=== PATIENT | male | born 1930 | race Caucasian/White ===

== ENCOUNTER 2019-02-15 17:01 | Inpatient (IN) | payer MEDICARE, OTHER ==
[~2019-02-15] VITALS: Ht 188 cm; Wt 110.9 kg
[~2019-02-15 17:01] MED LIST: ALBU18HF2 INH; ALOG25TA2 PO; AMOX-580 PO; ASPI-1265 PO; ATOR10TA87 PO; BUDE10.22 INH; CARB15DR95 EACHEYE; CLOP75TA33 PO; DULO60CA65 PO; FLUT16SP2 BOTHNARES; FURO-149 PO; GABA-534 PO; GLIP5TAB13 PO; IPRA4AER IH; LOSA25TA96 PO; METO50TA7 PO; OMEP20CA11 PO; POTA10TA36 PO; SILV50CR31 TP
[2019-02-15 17:42] LABS: BASOPHILS # (AUTO) 0.1 X10'3 (0-0.2); EOSINOPHILS # (AUTO) 0.2 X10'3 (0-0.9); HEMATOCRIT 48.4 % (42.0-52.0); HEMOGLOBIN 15.4 g/dl (14.0-17.9); LYMPHOCYTES # (AUTO) 1.8 X10'3 (1.1-4.8); LYMPHOCYTES % (AUTO) 16.7 % (21-51); MEAN CORPUSCULAR HEMOGLOBIN 19.9 PG (27.0-31.0); MEAN CORPUSCULAR HGB CONC 31.9 g/dL (33.0-36.5); MEAN CORPUSCULAR VOLUME 62.3 FL (78-98); MEAN PLATELET VOLUME 8.4 FL (7.4-10.4); MONOCYTES # (AUTO) 1.2 X10'3 (0-0.9); MONOCYTES % (AUTO) 11.9 % (2-12); NEUTROPHILS # (AUTO) 7.2 X10'3 (1.8-7.7); NEUTROPHILS % (AUTO) 68.4 % (42-75); PLATELET COUNT 273 X10'3 (140-440); RED BLOOD COUNT 7.77 X10'6 (4.70-6.10); RED CELL DISTRIBUTION WIDTH 17.8 % (11.5-14.5); WHITE BLOOD COUNT 10.5 X10'3 (4.5-11.0)
[2019-02-15 17:53] LABS: PARTIAL THROMBOPLASTIN TIME 29 SECONDS (22-32)
[2019-02-15 17:54] LABS: ALANINE AMINOTRANSFERASE 14 U/L (12-78); ALBUMIN 3.4 G/DL (3.4-5.0); ALBUMIN/GLOBULIN RATIO 0.9 (1.1-1.5); ALKALINE PHOSPHATASE 86 IU/L (46-116); ANION GAP 12 (8-16); ASPARTATE AMINO TRANSFERASE 16 U/L (10-37); BILIRUBIN,TOTAL 1.1 MG/DL (0.1-1.0); BLOOD UREA NITROGEN 19 MG/DL (7-18); CALCIUM 9.2 MG/DL (8.5-10.1); CHLORIDE 102 MMOL/L (99-107); CREATININE 1.58 MG/DL (0.60-1.10); GLUCOSE 197 MG/DL (70-104); POTASSIUM 4.1 MMOL/L (3.5-5.1); SODIUM 139 MMOL/L (135-145); TOTAL CARBON DIOXIDE 24.8 MMOL/L (24-32); TOTAL PROTEIN 7.4 G/DL (6.4-8.2); eGFR 42 ML/MIN
[2019-02-15 18:00] LABS: MAGNESIUM 2.1 MG/DL (1.5-2.4)
[2019-02-15 18:09] LABS: ANISOCYTOSIS 1+; HYPOCHROMASIA 1+; MICROCYTOSIS 2+; PLATELET ESTIMATE NORMAL; POIKILOCYTOSIS 1+; POLYCHROMASIA FEW; SPHEROCYTES FEW; TARGET CELLS FEW
[2019-02-15 18:10] LABS: ELLIPTOCYTES 1+; ROULEAUX 1+; SCHISTOCYTES FEW; STOMATOCYTES FEW; TEAR DROP CELLS FEW
[2019-02-15] MEDS ORDERED: methylPREDNISolone sod succ 125mg/2ml vial IV ONE (18:10)
[2019-02-15] MEDS ORDERED: ipratropium/albuterol 3ml nebule NEB ONE (18:10)
[2019-02-15] MEDS ORDERED: furosemide 40mg/4ml inj IV ONE (18:10)
[2019-02-15] MEDS ORDERED: ondansetron/PF 4mg/2ml inj IV PRN (19:35)
[2019-02-15] MEDS ORDERED: acetaminophen 325mg tablet PO PRN ×2 (19:35)
[2019-02-15] MEDS ORDERED: magnesium 4gm in 100ml NS 100 ML IV PRN (19:35)
[2019-02-15] MEDS ORDERED: potassium Cl 20 mEq SR tablet PO PRN (19:35)
[2019-02-15] MEDS ORDERED: morphine 2 MG/ML inj. syringe IV PRN ×2 (19:35)
[2019-02-15] MEDS ORDERED: magnesium Cl slow-release 64mg tablet PO PRN (19:35)
[2019-02-15] MEDS ORDERED: magnesium hydroxide 30ml (MOM) UD suspension PO PRN (19:35)
[2019-02-15] MEDS ORDERED: potassium CL 10mEq/100ml bag 100 ML IV PRN ×2 (19:35)
[2019-02-15] MEDS ORDERED: HYDROcodone/acetaminophen 5mg/325mg tablet PO PRN (19:35)
[2019-02-15] MEDS ORDERED: mag hydrox/Alum hydrox/simeth 30ml oral suspension PO PRN (19:35)
[2019-02-15] MEDS ORDERED: nitroGLYCERIN 0.4mg SUBLingual tab SL PRN (19:35)
[2019-02-15] MEDS ORDERED: magnesium 2GM in 50ml NS 50 ML IV PRN (19:35)
[2019-02-15] MEDS ORDERED: HYDROcodone/acetaminophen 10/325mg tab PO PRN (19:35)
[2019-02-15 19:58] LABS: COLOR,URINE YELLOW (Yellow); GLUCOSE, URINE NEGATIVE (Neg); KETONES,URINE NEGATIVE (Neg); LEUKOCYTE ESTERASE ,URINE TRACE (Neg); NITRITES, URINE NEGATIVE (Neg); OCCULT BLOOD,URINE MODERATE (Neg); PH,URINE 5.5 (4.8-8.0); PROTEIN,URINE TRACE mg/dl (Neg)
[2019-02-15 20:04] LABS: CLARITY,URINE SLIGHTLY CLOUDY (Clear); UA COLLECTION TYPE URINAL
[2019-02-15 20:09] LABS: BACTERIA,URINE 1+ /HPF (Neg)
[2019-02-15 20:10] LABS: MUCUS STRANDS FEW /LPF (Neg); SQUAMOUS EPITHELIAL CELL,UR FEW /LPF (FEW); WBC CLUMPS,URINE MODERATE /HPF (NEGATIVE)
[2019-02-15] MEDS: DOBUTamine-DoBUTrex 500mg/D5W 250 ML IV SCH (20:11)
[2019-02-15] MEDS ORDERED: MESSAGE TO PHARMACY PO ONE (21:45)
[2019-02-15] MEDS ORDERED: dextrose 50%-water 50ml dispensing syringe IV PRN ×2 (21:45)
[2019-02-15] MEDS ORDERED: glucagon, human recombinant 1mg kit SUBCUT PRN (21:45)
[2019-02-15] MEDS ORDERED: dextrose ORAL solution 15 GM/59 ML bottle PO PRN ×2 (21:45)
[2019-02-15] MEDS ORDERED: ipratropium/albuterol 3ml nebule NEB PRN (21:45)
--- NOTE | 2019-02-15 21:55 | NUR ---
Patient arrived to room 3024B from ER with at side. All belongings on person. Patient oriented to room, call light, plan of care and all questions answered. Dobutamine gtt @ 3mcg/kg/hr. Mobile set up and vital signs stable. 2 RN skin check done and pics taken of RLE and put in chart. Will continue to monitor. Addendum: 02/16/19 at 0033 by Anna Loya RN 3mcg/kg/min
[2019-02-15 22:00] VITALS: BP 122/98
[2019-02-15 23:00] VITALS: BP 101/58
--- NOTE | 2019-02-15 23:05 | NUR ---
PAGER ID: [phone] MESSAGE: [id number] Colin Mckinnon results in, WBC 5-10 Anna RN #[id number]
[2019-02-15 23:36] LABS: CLARITY,URINE TURBID (Clear); COLOR,URINE YELLOW (Yellow); GLUCOSE, URINE NEGATIVE (Neg); KETONES,URINE NEGATIVE (Neg); LEUKOCYTE ESTERASE ,URINE NEGATIVE (Neg); NITRITES, URINE NEGATIVE (Neg); OCCULT BLOOD,URINE LARGE (Neg); PROTEIN,URINE 30 mg/dl (Neg)
[2019-02-15 23:40] LABS: UA COLLECTION TYPE FOLEY CATH
[2019-02-15 23:43] LABS: BACTERIA,URINE FEW /HPF (Neg); RBC,URINE TNTC /HPF (0-2); SQUAMOUS EPITHELIAL CELL,UR FEW /LPF (FEW)
[2019-02-16] VITALS (14 sets, daily range): BP systolic 67–135; BP diastolic 33–100
[2019-02-16] MEDS: furosemide 10 MG/1 ML 10ml inj IV SCH ×4 (00:09→17:52)
--- NOTE | 2019-02-16 06:05 | NUR ---
Problems reprioritized. Patient report given, questions answered & plan of care reviewed with Benito MORFIN.
--- NOTE | 2019-02-16 06:09 | NUR ---
Patient in room PCU 3024. I have received report from SHELBIE Castillo and had the opportunity to ask questions and assume patient care.
[2019-02-16 06:20] LABS: BASOPHILS % (AUTO) 0.1 % (0-1); EOSINOPHILS % (AUTO) 0 % (0-6); HEMATOCRIT 44.8 % (42.0-52.0); HEMOGLOBIN 14.3 g/dl (14.0-17.9); LYMPHOCYTES # (AUTO) 0.4 X10'3 (1.1-4.8); LYMPHOCYTES % (AUTO) 6.9 % (21-51); MEAN CORPUSCULAR VOLUME 62.6 FL (78-98); MEAN PLATELET VOLUME 8.4 FL (7.4-10.4); MONOCYTES # (AUTO) 0.3 X10'3 (0-0.9); MONOCYTES % (AUTO) 4.8 % (2-12); NEUTROPHILS # (AUTO) 4.6 X10'3 (1.8-7.7); NEUTROPHILS % (AUTO) 88.2 % (42-75); PLATELET COUNT 201 X10'3 (140-440); RED BLOOD COUNT 7.16 X10'6 (4.70-6.10); RED CELL DISTRIBUTION WIDTH 17.4 % (11.5-14.5); WHITE BLOOD COUNT 5.3 X10'3 (4.5-11.0)
[2019-02-16 06:35] LABS: ALBUMIN 3.2 G/DL (3.4-5.0); ANION GAP 11 (8-16); BLOOD UREA NITROGEN 22 MG/DL (7-18); BUN/CREATININE RATIO 14.6 (5.4-32.0); CHLORIDE 101 MMOL/L (99-107); CREATININE 1.51 MG/DL (0.60-1.10); GLUCOSE 214 MG/DL (70-104); MAGNESIUM 2.1 MG/DL (1.5-2.4); POTASSIUM 4.2 MMOL/L (3.5-5.1); SODIUM 140 MMOL/L (135-145); TOTAL CARBON DIOXIDE 28.3 MMOL/L (24-32); eGFR 44 ML/MIN
[2019-02-16] MEDS: K and/or MAG REPLACEMENT MC SCH (07:08)
[2019-02-16] MEDS: pantoprazole 40mg Tablet.DR PO SCH (07:12)
[2019-02-16] MEDS: aspirin 81mg tab.chew PO SCH (07:12)
[2019-02-16] MEDS: duloxetine 30mg CAPSULE.DR PO SCH (07:12)
[2019-02-16] MEDS: potassium chloride 10mEq ER tablet PO SCH (07:12)
[2019-02-16] MEDS: atorvastatin 10mg tablet PO SCH (07:12)
[2019-02-16] MEDS: gabapentin 100mg capsule PO SCH ×3 (07:12→21:30)
[2019-02-16] MEDS: silver sulfadiazine cream 50gm TP SCH (07:12)
[2019-02-16 07:19] LABS: ANISOCYTOSIS 1+; MICROCYTOSIS 2+; PLATELET ESTIMATE NORMAL
[2019-02-16 07:20] LABS: ELLIPTOCYTES FEW; POLYCHROMASIA FEW; SCHISTOCYTES FEW
[2019-02-16] MEDS ORDERED: CARBOXYMETHYLCELLULOSE SODIUM 15 ML DROPS EACHEYE SCH (08:00)
[2019-02-16] MEDS ORDERED: enoxaparin 40mg/0.4ml syringe SQ SCH (08:00)
[2019-02-16] MEDS: budesonide 0.5mg/2ml UD nebule IH SCH ×2 (08:10→21:11)
[2019-02-16] MEDS: ipratropium/albuterol 3ml nebule NEB SCH ×3 (08:10→21:10)
--- NOTE | 2019-02-16 08:22 | NUR ---
Left for Dr Julien's answering service about Kiki Maloney's FARM [employer] recommendation upon assessment of the patient. She advised he is not a good candidate for a cardiac angiogram due to his inability to lie flat, his iodine allergy and his kidney function. They said they will relay the message to Dr Julien and get him to give a call back.
[2019-02-16] MEDS: clopidogrel 75mg tablet PO SCH (08:49)
[2019-02-16] MEDS: heparin, porcine 5000 units/ml vial SQ SCH ×2 (08:50→21:31)
[2019-02-16] MEDS: polyvinyl alcohol ophthalmic drops 15ml bottle EACHEYE SCH ×2 (08:51→20:00)
[2019-02-16] MEDS ORDERED: sacubitril/valsartan 24mg-26mg tablet PO SCH ×2 (11:20→20:00)
--- NOTE | 2019-02-16 12:32 | NUR ---
AGER ID: [phone] MESSAGE: [id number] Colin Mckinnon: wildlife technician report patient goes in and out of Sinus arrhythmia to afib. SHELBIE Oliver Ext [id number]
[2019-02-16] MEDS: insulin Lispro (HumaLOG) vial - multi-dose SQ SCH ×2 (13:21→18:45)
--- NOTE | 2019-02-16 13:27 | NUR ---
PAGER ID: [phone] MESSAGE: [id number] Colin Mckinnon briefly went into afib RVR. Back into baseline rhythm now. SHELBIE Oliver Ext [id number]
[2019-02-16] MEDS ORDERED: LOSA25TA96 PO (13:41)
[2019-02-16] MEDS ORDERED: ALOG25TA2 PO (13:41)
[2019-02-16] MEDS ORDERED: METO50TA7 PO (13:41)
[2019-02-16] MEDS ORDERED: GLIP5TAB13 PO (13:41)
[2019-02-16] MEDS ORDERED: GABA-534 PO (13:41)
[2019-02-16] MEDS ORDERED: FURO-149 PO (13:41)
[2019-02-16] MEDS ORDERED: BUDE10.22 INH (13:41)
[2019-02-16] MEDS ORDERED: CHOL100044 PO (13:43)
[2019-02-16] MEDS ORDERED: ALPR0.5T8 PO (13:43)
--- NOTE | 2019-02-16 13:45 | NUR ---
WOUND INFECTION EDUCATION PROVIDED BY WOUND CARE 1. Patient instructed to call their primary doctor, or go the ED immediately if any of the following symptoms occur: * Increased pain in wound * Increase in drainage from the wound * Redness in the skin surrounding the wound * Warmth in the skin surrounding the wound * Bleeding from the wound * Temperature of 101 or greater 2. If any of these occur while in the hospital tell a nurse immediately. Addendum: 02/16/19 at 1346 by Cleopatra Purvis RN Amended: Links added.
[2019-02-16] MEDS ORDERED: POTA-82 PO (13:46)
--- NOTE | 2019-02-16 15:57 | NUR ---
PAGER ID: [phone] MESSAGE: [id number] NITHIN FITCH REPORT HERE! JESSIE MODI
--- NOTE | 2019-02-16 17:18 | NUR ---
PAGER ID: [phone] MESSAGE: [id number] Colinnandini Adamquita: SBP so it was outside Lasix parameters. Do you want me hold the Lasix or go ahead and give it? SHELBIE Oliver Ext [id number]
--- NOTE | 2019-02-16 18:07 | NUR ---
Problems reprioritized. Patient report given, questions answered & plan of care reviewed with SHELBIE Castillo.
[2019-02-16] MEDS: DOBUTamine-DoBUTrex 500mg/D5W 250 ML IV SCH (19:46)
[2019-02-16] MEDS: carVEDilol 3.125mg tablet PO SCH (20:00)
[2019-02-16] MEDS: insulin glargine (Lantus) pen - multi-dose SQ SCH (21:55)
--- NOTE | 2019-02-16 23:50 | NUR ---
PAGER ID: [phone] MESSAGE: [id number] Colin Mckinnon Pts BP 80's/90s systolic, sustaining there. Map high 50's, low 60's. Pt remains asymptomatic. 80mg of Lasix IV due at midnight...please advise. Thanks! Anna [id number] Addendum: 02/17/19 at 0028 by Anna Loya RN Per Dr. Montiel-Hold 0000 Lasix, start Lasix 40mg IV BID in AM.
[2019-02-17] VITALS (11 sets, daily range): BP systolic 83–130; BP diastolic 45–69
[2019-02-17] MEDS: furosemide 10 MG/1 ML 10ml inj IV SCH
[2019-02-17 05:19] LABS: ALBUMIN 3.1 G/DL (3.4-5.0); ANION GAP 13 (8-16); BLOOD UREA NITROGEN 26 MG/DL (7-18); CALCIUM 8.7 MG/DL (8.5-10.1); CHLORIDE 100 MMOL/L (99-107); CREATININE 1.53 MG/DL (0.60-1.10); GLUCOSE 128 MG/DL (70-104); MAGNESIUM 2.1 MG/DL (1.5-2.4); POTASSIUM 3.2 MMOL/L (3.5-5.1); SODIUM 140 MMOL/L (135-145); TOTAL CARBON DIOXIDE 26.9 MMOL/L (24-32); eGFR 43 ML/MIN
[2019-02-17 06:28] LABS: BASOPHILS # (AUTO) 0.1 X10'3 (0-0.2); BASOPHILS % (AUTO) 0.7 % (0-1); EOSINOPHILS # (AUTO) 0.1 X10'3 (0-0.9); EOSINOPHILS % (AUTO) 1.8 % (0-6); HEMATOCRIT 42.5 % (42.0-52.0); HEMOGLOBIN 13.4 g/dl (14.0-17.9); LYMPHOCYTES # (AUTO) 0.9 X10'3 (1.1-4.8); LYMPHOCYTES % (AUTO) 12.1 % (21-51); MEAN CORPUSCULAR HEMOGLOBIN 19.9 PG (27.0-31.0); MEAN CORPUSCULAR HGB CONC 31.5 g/dL (33.0-36.5); MEAN CORPUSCULAR VOLUME 63.3 FL (78-98); MEAN PLATELET VOLUME 8.8 FL (7.4-10.4); MONOCYTES # (AUTO) 1.2 X10'3 (0-0.9); MONOCYTES % (AUTO) 15.9 % (2-12); NEUTROPHILS # (AUTO) 5.3 X10'3 (1.8-7.7); NEUTROPHILS % (AUTO) 69.5 % (42-75); PLATELET COUNT 170 X10'3 (140-440); RED BLOOD COUNT 6.72 X10'6 (4.70-6.10); RED CELL DISTRIBUTION WIDTH 17.6 % (11.5-14.5); WHITE BLOOD COUNT 7.6 X10'3 (4.5-11.0)
--- NOTE | 2019-02-17 07:09 | NUR ---
Problems reprioritized. Patient report given, questions answered & plan of care reviewed with Arti MORFIN.
[2019-02-17] MEDS: potassium chloride 10mEq ER tablet PO SCH (08:00)
[2019-02-17] MEDS ORDERED: furosemide 10 MG/1 ML 10ml inj IV SCH (08:00)
[2019-02-17] MEDS ORDERED: sacubitril/valsartan 24mg-26mg tablet PO SCH (08:00)
[2019-02-17] MEDS: silver sulfadiazine cream 50gm TP SCH (08:00)
[2019-02-17] MEDS: polyvinyl alcohol ophthalmic drops 15ml bottle EACHEYE SCH ×2 (08:00→20:00)
[2019-02-17] MEDS: heparin, porcine 5000 units/ml vial SQ SCH ×2 (08:00→21:48)
[2019-02-17] MEDS: K and/or MAG REPLACEMENT MC SCH (08:00)
[2019-02-17] MEDS: carVEDilol 3.125mg tablet PO SCH ×2 (09:08→21:49)
[2019-02-17] MEDS: potassium Cl 20 mEq SR tablet PO PRN ×2 (09:08→13:05)
[2019-02-17] MEDS: clopidogrel 75mg tablet PO SCH (09:09)
[2019-02-17] MEDS: atorvastatin 10mg tablet PO SCH (09:09)
[2019-02-17] MEDS: duloxetine 30mg CAPSULE.DR PO SCH (09:09)
[2019-02-17] MEDS: gabapentin 100mg capsule PO SCH ×3 (09:09→21:50)
[2019-02-17] MEDS: pantoprazole 40mg Tablet.DR PO SCH (09:09)
[2019-02-17] MEDS: aspirin 81mg tab.chew PO SCH (09:10)
[2019-02-17] MEDS: budesonide 0.5mg/2ml UD nebule IH SCH ×2 (09:40→20:57)
[2019-02-17] MEDS: ipratropium/albuterol 3ml nebule NEB SCH ×3 (09:40→20:57)
[2019-02-17] MEDS: DOBUTamine-DoBUTrex 500mg/D5W 250 ML IV SCH (09:43)
--- NOTE | 2019-02-17 09:52 | NUR ---
Message to Dr. Camarena - : Pratibha [id number] Do you want PT eval? Need order for the Lasix GTT I inadvertently omitted his AC fingerstick. I checked it after BFST and it was 145. Wait until lunch and cover him or give him something now? Thanks, Arti [facility] [id number]
[2019-02-17] MEDS ORDERED: furosemide inj 100 MG in normal saline 100ml IV soln 90 ML IV SCH ×2 (09:55→13:00)
[2019-02-17] MEDS: insulin Lispro (HumaLOG) vial - multi-dose SQ SCH (13:16)
--- NOTE | 2019-02-17 18:10 | NUR ---
Problems reprioritized. Patient report given, questions answered & plan of care reviewed with SHELBIE Castillo.
--- NOTE | 2019-02-17 18:10 | NUR ---
Patient in room PCU 3024. I have received report from Arti MORFIN and had the opportunity to ask questions and assume patient care.
[2019-02-17] MEDS: sacubitril/valsartan 24mg-26mg tablet PO SCH (21:49)
[2019-02-17] MEDS: insulin glargine (Lantus) pen - multi-dose SQ SCH (22:11)
[2019-02-18] VITALS (11 sets, daily range): BP systolic 93–116; BP diastolic 49–101
[2019-02-18 01:00] LABS: ANION GAP 11 (8-16); BLOOD UREA NITROGEN 23 MG/DL (7-18); CALCIUM 8.3 MG/DL (8.5-10.1); CHLORIDE 101 MMOL/L (99-107); CREATININE 1.35 MG/DL (0.60-1.10); GLUCOSE 129 MG/DL (70-104); PHOSPHORUS 3.6 MG/DL (2.3-4.5); POTASSIUM 3.7 MMOL/L (3.5-5.1); SODIUM 139 MMOL/L (135-145); TOTAL CARBON DIOXIDE 26.9 MMOL/L (24-32); eGFR 50 ML/MIN
[2019-02-18] MEDS: potassium Cl 20 mEq SR tablet PO PRN ×2 (01:09→08:52)
[2019-02-18] MEDS: furosemide inj 100 MG in normal saline 100ml IV soln 90 ML IV SCH ×3 (01:11→17:25)
[2019-02-18] MEDS: DOBUTamine-DoBUTrex 500mg/D5W 250 ML IV SCH ×2 (02:09→17:24)
--- NOTE | 2019-02-18 06:20 | NUR ---
Problems reprioritized. Patient report given, questions answered & plan of care reviewed with Rosamaria MORFIN.
[2019-02-18 06:33] LABS: BASOPHILS # (AUTO) 0.1 X10'3 (0-0.2); BASOPHILS % (AUTO) 1.2 % (0-1); EOSINOPHILS # (AUTO) 0.4 X10'3 (0-0.9); EOSINOPHILS % (AUTO) 4.7 % (0-6); HEMATOCRIT 41.1 % (42.0-52.0); HEMOGLOBIN 13.2 g/dl (14.0-17.9); LYMPHOCYTES # (AUTO) 0.9 X10'3 (1.1-4.8); LYMPHOCYTES % (AUTO) 11.4 % (21-51); MEAN CORPUSCULAR HEMOGLOBIN 19.9 PG (27.0-31.0); MEAN CORPUSCULAR VOLUME 62.2 FL (78-98); MEAN PLATELET VOLUME 8.4 FL (7.4-10.4); MONOCYTES # (AUTO) 1.1 X10'3 (0-0.9); MONOCYTES % (AUTO) 14.6 % (2-12); NEUTROPHILS # (AUTO) 5.2 X10'3 (1.8-7.7); NEUTROPHILS % (AUTO) 68.1 % (42-75); PLATELET COUNT 173 X10'3 (140-440); RED BLOOD COUNT 6.61 X10'6 (4.70-6.10); RED CELL DISTRIBUTION WIDTH 17.5 % (11.5-14.5); WHITE BLOOD COUNT 7.6 X10'3 (4.5-11.0)
[2019-02-18 07:03] LABS: ALANINE AMINOTRANSFERASE 8 U/L (12-78); ALBUMIN 2.9 G/DL (3.4-5.0); ALBUMIN/GLOBULIN RATIO 0.8 (1.1-1.5); ALKALINE PHOSPHATASE 70 IU/L (46-116); ANION GAP 11 (8-16); ASPARTATE AMINO TRANSFERASE 12 U/L (10-37); BILIRUBIN,TOTAL 2.2 MG/DL (0.1-1.0); BLOOD UREA NITROGEN 21 MG/DL (7-18); BUN/CREATININE RATIO 16.3 (5.4-32.0); CALCIUM 8.2 MG/DL (8.5-10.1); CHLORIDE 102 MMOL/L (99-107); CREATININE 1.29 MG/DL (0.60-1.10); GLUCOSE 98 MG/DL (70-104); PHOSPHORUS 3.7 MG/DL (2.3-4.5); POTASSIUM 3.6 MMOL/L (3.5-5.1); SODIUM 140 MMOL/L (135-145); TOTAL CARBON DIOXIDE 27.4 MMOL/L (24-32); TOTAL PROTEIN 6.4 G/DL (6.4-8.2); eGFR 53 ML/MIN
[2019-02-18 07:31] LABS: PLATELET ESTIMATE NORMAL
[2019-02-18 07:32] LABS: ANISOCYTOSIS 1+; ELLIPTOCYTES FEW; MICROCYTOSIS 2+; SCHISTOCYTES FEW
[2019-02-18 07:33] LABS: BURR CELLS FEW
[2019-02-18] MEDS: polyvinyl alcohol ophthalmic drops 15ml bottle EACHEYE SCH ×2 (08:00→20:52)
[2019-02-18] MEDS: K and/or MAG REPLACEMENT MC SCH (08:00)
[2019-02-18] MEDS: pantoprazole 40mg Tablet.DR PO SCH (08:44)
[2019-02-18] MEDS: gabapentin 100mg capsule PO SCH ×3 (08:45→20:57)
[2019-02-18] MEDS: sacubitril/valsartan 24mg-26mg tablet PO SCH ×2 (08:45→20:53)
[2019-02-18] MEDS: duloxetine 30mg CAPSULE.DR PO SCH (08:45)
[2019-02-18] MEDS: potassium chloride 10mEq ER tablet PO SCH (08:45)
[2019-02-18] MEDS: aspirin 81mg tab.chew PO SCH (08:45)
[2019-02-18] MEDS: clopidogrel 75mg tablet PO SCH (08:45)
[2019-02-18] MEDS: atorvastatin 10mg tablet PO SCH (08:45)
[2019-02-18] MEDS: carVEDilol 3.125mg tablet PO SCH ×2 (08:45→20:55)
[2019-02-18] MEDS: silver sulfadiazine cream 50gm TP SCH (08:46)
[2019-02-18] MEDS: heparin, porcine 5000 units/ml vial SQ SCH ×2 (08:46→20:00)
[2019-02-18] MEDS: budesonide 0.5mg/2ml UD nebule IH SCH ×2 (09:11→20:18)
[2019-02-18] MEDS: ipratropium/albuterol 3ml nebule NEB SCH ×3 (09:11→20:18)
--- NOTE | 2019-02-18 11:01 | NUR ---
Oxygen at 3L NC, and saturation at 99%. Decreasing O2 to 2L NC to keep oxygen at 90 to 94 % per the order.
[2019-02-18] MEDS ORDERED: furosemide inj 100 MG in normal saline 100ml IV soln 90 ML IV SCH (13:00)
[2019-02-18 13:08] LABS: ALBUMIN 3.1 G/DL (3.4-5.0); ANION GAP 8 (8-16); BLOOD UREA NITROGEN 20 MG/DL (7-18); BUN/CREATININE RATIO 15.7 (5.4-32.0); CALCIUM 8.6 MG/DL (8.5-10.1); CHLORIDE 102 MMOL/L (99-107); CREATININE 1.27 MG/DL (0.60-1.10); GLUCOSE 89 MG/DL (70-104); MAGNESIUM 2.2 MG/DL (1.5-2.4); PHOSPHORUS 3.5 MG/DL (2.3-4.5); POTASSIUM 3.9 MMOL/L (3.5-5.1); SODIUM 140 MMOL/L (135-145); TOTAL CARBON DIOXIDE 30.4 MMOL/L (24-32); eGFR 54 ML/MIN
[2019-02-18] MEDS ORDERED: metolazone 2.5mg tablet PO ONE (14:50)
--- NOTE | 2019-02-18 17:27 | NUR ---
Spoke with Pharmacy reagrding the zantac order for iodine allergy. Pharmacy will correct the order to ensure thefredi barkley will receive the zantac 150mg tonight and tomorrow morning before the heart cath. Addendum: 02/18/19 at 1733 by Rosamaria Ruiz RN Pharmacy will be changing to the order to the equivalent of famotidine.
--- NOTE | 2019-02-18 18:15 | NUR ---
Patient in room PCU 3024. I have received report from Rosamaria MORFIN and had the opportunity to ask questions and assume patient care.
--- NOTE | 2019-02-18 18:33 | NUR ---
Problems reprioritized. Patient report given, questions answered & plan of care reviewed with Nakul RN. Patient stable at transfer of care.
[2019-02-18 18:40] LABS: ALBUMIN 3.1 G/DL (3.4-5.0); ANION GAP 9 (8-16); BLOOD UREA NITROGEN 22 MG/DL (7-18); BUN/CREATININE RATIO 16.3 (5.4-32.0); CALCIUM 8.2 MG/DL (8.5-10.1); CHLORIDE 100 MMOL/L (99-107); CREATININE 1.35 MG/DL (0.60-1.10); GLUCOSE 124 MG/DL (70-104); MAGNESIUM 2.1 MG/DL (1.5-2.4); PHOSPHORUS 3.3 MG/DL (2.3-4.5); POTASSIUM 3.9 MMOL/L (3.5-5.1); SODIUM 137 MMOL/L (135-145); TOTAL CARBON DIOXIDE 28.1 MMOL/L (24-32); eGFR 50 ML/MIN
[2019-02-18] MEDS ORDERED: potassium CL 10mEq/100ml bag 100 ML IV PRN (20:30)
[2019-02-18] MEDS ORDERED: predniSONE 20 mg tablet PO ONE (21:00)
[2019-02-18] MEDS ORDERED: famotidine 20mg tablet PO ONE (21:00)
[2019-02-18] MEDS ORDERED: diphenhydrAMINE 25mg capsule PO ONE (21:00)
[2019-02-18] MEDS: insulin glargine (Lantus) pen - multi-dose SQ SCH (21:17)
[2019-02-19] VITALS (18 sets, daily range): BP systolic 97–156; BP diastolic 45–139
[2019-02-19] MEDS: potassium Cl 20 mEq SR tablet PO PRN ×2 (01:00→05:33)
[2019-02-19 01:34] LABS: BASOPHILS % (AUTO) 0.4 % (0-1); EOSINOPHILS # (AUTO) 0.1 X10'3 (0-0.9); EOSINOPHILS % (AUTO) 1.6 % (0-6); HEMATOCRIT 44.7 % (42.0-52.0); HEMOGLOBIN 14.3 g/dl (14.0-17.9); LYMPHOCYTES # (AUTO) 0.5 X10'3 (1.1-4.8); LYMPHOCYTES % (AUTO) 5.8 % (21-51); MEAN CORPUSCULAR HEMOGLOBIN 19.9 PG (27.0-31.0); MEAN CORPUSCULAR VOLUME 62.1 FL (78-98); MEAN PLATELET VOLUME 8.4 FL (7.4-10.4); MONOCYTES # (AUTO) 0.6 X10'3 (0-0.9); MONOCYTES % (AUTO) 6.5 % (2-12); NEUTROPHILS % (AUTO) 85.7 % (42-75); PLATELET COUNT 202 X10'3 (140-440); RED BLOOD COUNT 7.19 X10'6 (4.70-6.10); WHITE BLOOD COUNT 9.3 X10'3 (4.5-11.0)
[2019-02-19 01:42] LABS: MAGNESIUM 2.1 MG/DL (1.5-2.4); POTASSIUM 3.9 MMOL/L (3.5-5.1)
[2019-02-19 04:38] LABS: ANISOCYTOSIS 1+; HYPOCHROMASIA 1+; MICROCYTOSIS 2+; PLATELET ESTIMATE NORMAL
[2019-02-19 04:39] LABS: ELLIPTOCYTES 1+; TARGET CELLS FEW
[2019-02-19] MEDS ORDERED: predniSONE 20 mg tablet PO ONE (06:00)
[2019-02-19] MEDS ORDERED: diphenhydrAMINE 25mg capsule PO ONE (06:00)
[2019-02-19] MEDS ORDERED: famotidine 20mg tablet PO ONE (06:00)
--- NOTE | 2019-02-19 06:30 | NUR ---
Problems reprioritized. Patient report given, questions answered & plan of care reviewed with Rosamaria Dover RN.
--- NOTE | 2019-02-19 06:33 | NUR ---
Patient in room PCU 3024. I have received report from [facility] and had the opportunity to ask questions and assume patient care.
[2019-02-19] MEDS: furosemide inj 100 MG in normal saline 100ml IV soln 90 ML IV SCH ×3 (06:40→20:16)
[2019-02-19] MEDS ORDERED: LIDOcaine/PRILOcaine 5gm cream TP ONE (07:00)
[2019-02-19] MEDS: ipratropium/albuterol 3ml nebule NEB SCH ×2 (07:34→16:04)
[2019-02-19] MEDS: budesonide 0.5mg/2ml UD nebule IH SCH ×2 (07:34→20:26)
[2019-02-19 07:39] LABS: ALANINE AMINOTRANSFERASE 18 U/L (12-78); ALBUMIN 3.3 G/DL (3.4-5.0); ALBUMIN/GLOBULIN RATIO 0.8 (1.1-1.5); ALKALINE PHOSPHATASE 77 IU/L (46-116); ANION GAP 11 (8-16); ASPARTATE AMINO TRANSFERASE 18 U/L (10-37); BILIRUBIN,TOTAL 2.3 MG/DL (0.1-1.0); BLOOD UREA NITROGEN 20 MG/DL (7-18); BUN/CREATININE RATIO 14.9 (5.4-32.0); CALCIUM 8.8 MG/DL (8.5-10.1); CHLORIDE 97 MMOL/L (99-107); CREATININE 1.34 MG/DL (0.60-1.10); GLUCOSE 165 MG/DL (70-104); PHOSPHORUS 4.4 MG/DL (2.3-4.5); POTASSIUM 4.1 MMOL/L (3.5-5.1); SODIUM 136 MMOL/L (135-145); TOTAL CARBON DIOXIDE 27.7 MMOL/L (24-32); TOTAL PROTEIN 7.4 G/DL (6.4-8.2); eGFR 50 ML/MIN
[2019-02-19] MEDS: DOBUTamine-DoBUTrex 500mg/D5W 250 ML IV SCH ×2 (07:43→15:19)
[2019-02-19] MEDS: K and/or MAG REPLACEMENT MC SCH (08:00)
[2019-02-19] MEDS: polyvinyl alcohol ophthalmic drops 15ml bottle EACHEYE SCH ×2 (08:00→20:00)
[2019-02-19] MEDS ORDERED: LIDOcaine 1% (10mg/ml)w/preservative injection 20ml MDV ONE (08:29)
[2019-02-19] MEDS ORDERED: fentaNYL/PF 50MCG/1 ML 2ML syringe ONE (08:29)
[2019-02-19] MEDS ORDERED: midazolam 2 mg/2 ml injection ONE (08:29)
[2019-02-19] MEDS ORDERED: verapamil 2.5 mg/ml inj IV ONE (08:29)
[2019-02-19] MEDS ORDERED: nitroGLYCERIN-Tridil 50MG/D5W 250 ML IV ONE (08:29)
[2019-02-19] MEDS ORDERED: iohexol 350 MG/ML 50ML vial IV ONE (08:30)
[2019-02-19] MEDS ORDERED: iohexol 350MG/ML 100ml bottle IV ONE (08:30)
[2019-02-19] MEDS ORDERED: heparin 1,000unit/ml 10ml vial 10 ML ONE (08:30)
[2019-02-19] MEDS ORDERED: hydrocortisone sod succ/PF 100mg/2ml inj. ONE (08:50)
[2019-02-19] MEDS ORDERED: atropine 0.1mg/ml 10ml syringe ONE (08:53)
[2019-02-19 09:35] LABS: ISTAT HGB ART 15.6 g/dl (14.0-18.0); ISTAT Hct ART 46 %PCV (42-52); ISTAT O2 SATURATION ARTERIAL 92 % (95-98); ISTAT SOURCE ART
[2019-02-19 09:35] LABS: ISTAT Hct MIX 46 %PCV (42-52); ISTAT O2 SATURATION MIX VENOUS 65 % (60-80); ISTAT SOURCE MIX
[2019-02-19] MEDS ORDERED: sodium bicarbonate inj. 100 ML in sodium chloride 0.45% 1,000 ML IV SCH (10:45)
[2019-02-19] MEDS: acetylcysteine 200 MG/ml 4ml vial PO SCH ×2 (11:07→20:24)
[2019-02-19] MEDS: carVEDilol 3.125mg tablet PO SCH ×2 (12:25→20:20)
[2019-02-19] MEDS: sacubitril/valsartan 24mg-26mg tablet PO SCH ×2 (12:25→20:21)
[2019-02-19] MEDS: duloxetine 30mg CAPSULE.DR PO SCH (12:26)
[2019-02-19] MEDS: aspirin 81mg tab.chew PO SCH (12:28)
[2019-02-19] MEDS: atorvastatin 10mg tablet PO SCH (12:30)
[2019-02-19] MEDS: clopidogrel 75mg tablet PO SCH (12:31)
[2019-02-19] MEDS: pantoprazole 40mg Tablet.DR PO SCH (12:36)
[2019-02-19] MEDS: potassium chloride 10mEq ER tablet PO SCH (12:36)
[2019-02-19] MEDS: gabapentin 100mg capsule PO SCH ×3 (12:36→20:21)
[2019-02-19] MEDS: silver sulfadiazine cream 50gm TP SCH (12:39)
[2019-02-19 12:40] LABS: ALBUMIN 3.2 G/DL (3.4-5.0); ANION GAP 10 (8-16); BLOOD UREA NITROGEN 21 MG/DL (7-18); BUN/CREATININE RATIO 14.5 (5.4-32.0); CALCIUM 8.8 MG/DL (8.5-10.1); CHLORIDE 96 MMOL/L (99-107); CREATININE 1.45 MG/DL (0.60-1.10); GLUCOSE 173 MG/DL (70-104); PHOSPHORUS 4.2 MG/DL (2.3-4.5); POTASSIUM 3.9 MMOL/L (3.5-5.1); SODIUM 135 MMOL/L (135-145); TOTAL CARBON DIOXIDE 29.4 MMOL/L (24-32); eGFR 46 ML/MIN
[2019-02-19] MEDS: insulin Lispro (HumaLOG) vial - multi-dose SQ SCH (13:27)
[2019-02-19] MEDS ORDERED: ALPRAZolam 0.25mg tablet PO STA (17:27)
[2019-02-19] MEDS ORDERED: ALPRAZolam 0.25mg tablet PO PRN (17:30)
--- NOTE | 2019-02-19 18:18 | NUR ---
Problems reprioritized. Patient report given, questions answered & plan of care reviewed with
--- NOTE | 2019-02-19 18:30 | NUR ---
Patient in room PCU 3024. I have received report from Rosamaria MORFIN and had the opportunity to ask questions and assume patient care.
[2019-02-19 19:37] LABS: ALBUMIN 3.2 G/DL (3.4-5.0); ANION GAP 12 (8-16); BLOOD UREA NITROGEN 25 MG/DL (7-18); BUN/CREATININE RATIO 16.4 (5.4-32.0); CALCIUM 9.3 MG/DL (8.5-10.1); CHLORIDE 96 MMOL/L (99-107); CREATININE 1.52 MG/DL (0.60-1.10); GLUCOSE 169 MG/DL (70-104); MAGNESIUM 2.1 MG/DL (1.5-2.4); PHOSPHORUS 4.1 MG/DL (2.3-4.5); SODIUM 134 MMOL/L (135-145); TOTAL CARBON DIOXIDE 26.4 MMOL/L (24-32); eGFR 44 ML/MIN
[2019-02-19 19:45] LABS: POTASSIUM 4.2 MMOL/L (3.5-5.1)
[2019-02-19] MEDS: insulin glargine (Lantus) pen - multi-dose SQ SCH (21:26)
--- NOTE | 2019-02-19 22:34 | NUR ---
pt pulled out another IV trying to put the feet up in his recliner. he has been strictly instructed to call for help moving recliner or anything to avoid pulling out any more ivs.
[2019-02-20] VITALS (26 sets, daily range): BP systolic 61–114; BP diastolic 37–93
--- NOTE | 2019-02-20 03:49 | NUR ---
pt woke very confused, confused as to place and time and his age. remembering things from [employer] war. sat in room with pt for a while, repositioned him in recliner and reoriented him. checked his blood sugar due to confusion, 144. pt asked why he was so confused. excellent urine output. 2350 ml. pt said he did not feel low in sugar, he knows that feeling and that was not it.
--- NOTE | 2019-02-20 05:59 | NUR ---
Problems reprioritized. Patient report given, questions answered & plan of care reviewed with hany hung.
[2019-02-20 06:28] LABS: BASOPHILS # (AUTO) 0.1 X10'3 (0-0.2); BASOPHILS % (AUTO) 0.7 % (0-1); EOSINOPHILS # (AUTO) 0.2 X10'3 (0-0.9); EOSINOPHILS % (AUTO) 2.1 % (0-6); HEMATOCRIT 41.7 % (42.0-52.0); HEMOGLOBIN 13.5 g/dl (14.0-17.9); LYMPHOCYTES % (AUTO) 12.3 % (21-51); MEAN CORPUSCULAR HEMOGLOBIN 20.1 PG (27.0-31.0); MEAN CORPUSCULAR HGB CONC 32.5 g/dL (33.0-36.5); MEAN CORPUSCULAR VOLUME 61.7 FL (78-98); MEAN PLATELET VOLUME 8.2 FL (7.4-10.4); MONOCYTES # (AUTO) 1.3 X10'3 (0-0.9); MONOCYTES % (AUTO) 16.4 % (2-12); NEUTROPHILS # (AUTO) 5.5 X10'3 (1.8-7.7); NEUTROPHILS % (AUTO) 68.5 % (42-75); PLATELET COUNT 200 X10'3 (140-440); RED BLOOD COUNT 6.75 X10'6 (4.70-6.10)
--- NOTE | 2019-02-20 06:31 | NUR ---
Patient in room PCU 3024. I have received report from Yaritza and had the opportunity to ask questions and assume patient care.
[2019-02-20 06:44] LABS: ALANINE AMINOTRANSFERASE 16 U/L (12-78); ALBUMIN/GLOBULIN RATIO 0.8 (1.1-1.5); ALKALINE PHOSPHATASE 66 IU/L (46-116); ANION GAP 9 (8-16); ASPARTATE AMINO TRANSFERASE 17 U/L (10-37); BILIRUBIN,TOTAL 1.6 MG/DL (0.1-1.0); BLOOD UREA NITROGEN 28 MG/DL (7-18); BUN/CREATININE RATIO 17.1 (5.4-32.0); CALCIUM 8.7 MG/DL (8.5-10.1); CHLORIDE 96 MMOL/L (99-107); CREATININE 1.64 MG/DL (0.60-1.10); GLUCOSE 123 MG/DL (70-104); MAGNESIUM 2.2 MG/DL (1.5-2.4); SODIUM 138 MMOL/L (135-145); TOTAL CARBON DIOXIDE 32.8 MMOL/L (24-32); TOTAL PROTEIN 6.7 G/DL (6.4-8.2); eGFR 40 ML/MIN
[2019-02-20 06:52] LABS: ANISOCYTOSIS 1+; MICROCYTOSIS 2+; PLATELET ESTIMATE NORMAL; TOTAL CELLS COUNTED 100
[2019-02-20] MEDS: ipratropium/albuterol 3ml nebule NEB SCH ×3 (07:09→19:59)
[2019-02-20] MEDS: budesonide 0.5mg/2ml UD nebule IH SCH ×2 (07:14→19:59)
[2019-02-20] MEDS: aspirin 81mg tab.chew PO SCH (07:22)
[2019-02-20] MEDS: atorvastatin 10mg tablet PO SCH (07:22)
[2019-02-20] MEDS: potassium chloride 10mEq ER tablet PO SCH (07:22)
[2019-02-20] MEDS: pantoprazole 40mg Tablet.DR PO SCH (07:23)
[2019-02-20] MEDS: duloxetine 30mg CAPSULE.DR PO SCH (07:23)
[2019-02-20] MEDS: carVEDilol 3.125mg tablet PO SCH ×2 (07:23→20:00)
[2019-02-20] MEDS: clopidogrel 75mg tablet PO SCH (07:24)
[2019-02-20] MEDS: sacubitril/valsartan 24mg-26mg tablet PO SCH ×2 (07:24→20:00)
[2019-02-20] MEDS: potassium Cl 20 mEq SR tablet PO PRN ×5 (07:25→20:34)
[2019-02-20] MEDS: gabapentin 100mg capsule PO SCH ×3 (07:25→20:34)
[2019-02-20] MEDS: acetylcysteine 200 MG/ml 4ml vial PO SCH ×2 (07:28→21:27)
[2019-02-20] MEDS: furosemide inj 100 MG in normal saline 100ml IV soln 90 ML IV SCH (07:29)
[2019-02-20] MEDS: DOBUTamine-DoBUTrex 500mg/D5W 250 ML IV SCH (07:30)
--- NOTE | 2019-02-20 07:48 | NUR ---
PAGER ID: [phone] MESSAGE: [id number]. Patient has K of 3.0, replacing per protocol. [place] [phone]
[2019-02-20] MEDS: polyvinyl alcohol ophthalmic drops 15ml bottle EACHEYE SCH ×2 (08:00→20:00)
[2019-02-20] MEDS: silver sulfadiazine cream 50gm TP SCH (08:45)
[2019-02-20] MEDS: K and/or MAG REPLACEMENT MC SCH (08:55)
--- NOTE | 2019-02-20 14:25 | NUR ---
Patient blood glucose was 101 before lunch. Patient took 2 hours to eat and has previously not been eating enough carbs to cover with insulin. The patient ate 26 carbs however due to the length of time taken to eat, no coverage will be administered. Will monitor closely and cover per protocol for dinner.
--- NOTE | 2019-02-20 15:40 | NUR ---
PAGER ID: [phone] MESSAGE: [id number]. Patient is having new onset of hematuria and c/o kidney pain. [place] [phone]
--- NOTE | 2019-02-20 15:54 | NUR ---
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 Per MD progress notes pt with improving SOB and edema. Pt currently on 1.2L fluid restriction on heart healthy CHO controlled diet documented with 0-25% PO intake likely not meeting nutrient needs however PO intake up to 75% at lunch today. Pt seen at bedside reports low appetite since admit d/t food preferences. Pt reports he likes strong pepper flavors d/t cultural background. Attempted to obtain food preferences however pt states he is discharging today. Pt reports working with kosher dietary service supervisor for food preferences. Pt with requests for dinner tonight, d/w dietary. Pt declined alternative heart healthy menu however was provided with RD contact information. LBM 02/18. Will continue to follow. Recommendations: 1) Continue heart healthy CHO controlled diet with fluid restriction per MD 2) Encourage PO intake; monitor need for ONS 3) [place] food preferences within the limitations of current diet order 4) Routine bowel care 5) Wt per rx Addendum: 02/20/19 at [address] Amended: Links added.
--- NOTE | 2019-02-20 16:27 | NUR ---
Notified Dr. Shook regarding the patient's hematuria. New orders to stop dobutamine and lasix gtt due to transportation to [place] in [place]. No new orders regarding the hematuria, will continue to monitor closely.
--- NOTE | 2019-02-20 18:19 | NUR ---
[place] documentation: I have reviewed and agree with interventions, assessments performed and documented by Sheree MORFIN. [place] Medication Administration: For this medication-pass time frame, medication were reviewed, dispensed, administered and documented per hospital policy by Sheree MORFIN .
--- NOTE | 2019-02-20 18:19 | NUR ---
Problems reprioritized. Patient report given, questions answered & plan of care reviewed with
--- NOTE | 2019-02-20 19:15 | NUR ---
pt blood pressure dropped into 60s. has been steadily dropping since dobutamine gtt was turned off at about 1600 per report from Day shift. notified Dr. Mendes, orders to restart dobutamine at previous rate.
[2019-02-20] MEDS ORDERED: DOBUTamine-DoBUTrex 500mg/D5W 250 ML IV SCH (19:20)
--- NOTE | 2019-02-20 19:36 | NUR ---
dobutamine gtt back on
[2019-02-20] MEDS: furosemide 40mg/4ml inj IV SCH (21:00)
[2019-02-20] MEDS: insulin glargine (Lantus) pen - multi-dose SQ SCH (21:29)
--- NOTE | 2019-02-20 21:43 | NUR ---
Dr. Shook popped up to check on pt when he learned dobutamine was turned back on. ok to hold lasix tonight and start in am.
[2019-02-21] VITALS (9 sets, daily range): BP systolic 86–124; BP diastolic 48–72
[2019-02-21 05:37] LABS: ALANINE AMINOTRANSFERASE 19 U/L (12-78); ALBUMIN 3.2 G/DL (3.4-5.0); ALBUMIN/GLOBULIN RATIO 0.8 (1.1-1.5); ALKALINE PHOSPHATASE 71 IU/L (46-116); ANION GAP 10 (8-16); ASPARTATE AMINO TRANSFERASE 17 U/L (10-37); BILIRUBIN,TOTAL 1.4 MG/DL (0.1-1.0); BLOOD UREA NITROGEN 31 MG/DL (7-18); BUN/CREATININE RATIO 19.3 (5.4-32.0); CALCIUM 8.6 MG/DL (8.5-10.1); CHLORIDE 96 MMOL/L (99-107); CREATININE 1.61 MG/DL (0.60-1.10); GLUCOSE 117 MG/DL (70-104); MAGNESIUM 2.1 MG/DL (1.5-2.4); PHOSPHORUS 4.6 MG/DL (2.3-4.5); POTASSIUM 3.9 MMOL/L (3.5-5.1); SODIUM 138 MMOL/L (135-145); TOTAL CARBON DIOXIDE 32.1 MMOL/L (24-32); TOTAL PROTEIN 7.1 G/DL (6.4-8.2); eGFR 41 ML/MIN
--- NOTE | 2019-02-21 06:15 | NUR ---
Patient in room PCU 3024. I have received report from SHELBIE Vigil and had the opportunity to ask questions and assume patient care.
--- NOTE | 2019-02-21 06:30 | NUR ---
Patient in room PCU 3024. I have received report from SHELBIE Vigil and had the opportunity to ask questions and assume patient care. Pt in chair at bedside, resting comfortably.
--- NOTE | 2019-02-21 06:31 | NUR ---
Problems reprioritized. Patient report given, questions answered & plan of care reviewed with Tamara and Rosamaria Rns.
[2019-02-21] MEDS: ipratropium/albuterol 3ml nebule NEB SCH (06:56)
[2019-02-21] MEDS: budesonide 0.5mg/2ml UD nebule IH SCH (06:57)
[2019-02-21] MEDS: silver sulfadiazine cream 50gm TP SCH (08:00)
[2019-02-21] MEDS: carVEDilol 3.125mg tablet PO SCH (08:00)
[2019-02-21] MEDS: polyvinyl alcohol ophthalmic drops 15ml bottle EACHEYE SCH (08:00)
[2019-02-21] MEDS: sacubitril/valsartan 24mg-26mg tablet PO SCH (08:00)
[2019-02-21] MEDS: duloxetine 30mg CAPSULE.DR PO SCH (08:16)
[2019-02-21] MEDS: gabapentin 100mg capsule PO SCH ×2 (08:16→13:00)
[2019-02-21] MEDS: aspirin 81mg tab.chew PO SCH (08:16)
[2019-02-21] MEDS: pantoprazole 40mg Tablet.DR PO SCH (08:16)
[2019-02-21] MEDS: potassium chloride 10mEq ER tablet PO SCH (08:17)
[2019-02-21] MEDS: clopidogrel 75mg tablet PO SCH (08:17)
[2019-02-21] MEDS: atorvastatin 10mg tablet PO SCH (08:17)
[2019-02-21] MEDS: acetylcysteine 200 MG/ml 4ml vial PO SCH (08:17)
[2019-02-21] MEDS: furosemide 40mg/4ml inj IV SCH ×2 (08:18→13:00)
--- NOTE | 2019-02-21 08:45 | NUR ---
Dr. Julien at bedside. Orders received to decrease dobutamine drip to 4mcg/hr, remove fluid restriction & give 250mL NS bolus now.
[2019-02-21] MEDS: K and/or MAG REPLACEMENT MC SCH (09:16)
[2019-02-21] MEDS ORDERED: normal saline 1000ml 1,000 ML IV ONE (09:20)
[2019-02-21] MEDS: potassium Cl 20 mEq SR tablet PO PRN (09:36)
--- NOTE | 2019-02-21 09:45 | NUR ---
Order received from Dr. Julien to decrease dobutamine gtt to 3mcg/kg/min.
[2019-02-21] MEDS ORDERED: DOBUTamine-DoBUTrex 500mg/D5W 250 ML IV SCH ×3 (10:15→19:20)
--- NOTE | 2019-02-21 11:49 | NUR ---
Dr. Shook at bedside. Order received to keep dobutamine gtt at 2mcg/kg/min. Dr. Julien telephoned & agreed with plan of care. Will continue to closely monitor.
--- NOTE | 2019-02-21 12:26 | NUR ---
[facility] to [facility], nurse unavailable at this time. MD hospital stated they will return call.
--- NOTE | 2019-02-21 13:20 | NUR ---
Pt transported via gurney to helicopter pad with [facility] crew. Shirt, shorts & shoes sent with pt, all other belongings sent home with son Ari.
[2019-02-22] MEDS ORDERED: DOBUTamine-DoBUTrex 500mg/D5W 250 ML IV SCH ×2 (10:15)
== END 2019-02-21 14:18 | disposition short-term general hospital (02) | DRG 286 ==
LOC: ER 17:02 → PCU 3S 21:59 → CMPBEDREQ 02-19 19:56
PROVIDERS: ADMIT Hospitalist; ATTEND Family Medicine
PROC: 4A023N8 Measurement of Cardiac Sampling and Pressure, Bilateral, Percutaneous Approach (ICD-10-PCS; principal; 2019-02-19)
PROC: B2111ZZ Fluoroscopy of Multiple Coronary Arteries using Low Osmolar Contrast (ICD-10-PCS; 2019-02-19)
PROC: B2151ZZ Fluoroscopy of Left Heart using Low Osmolar Contrast (ICD-10-PCS; 2019-02-19)
DX: I13.0 Hypertensive heart and chronic kidney disease with heart failure and stage 1 through stage 4 chronic kidney disease, or unspecified chronic kidney disease (principal); I50.23 Acute on chronic systolic (congestive) heart failure; I25.10 Atherosclerotic heart disease of native coronary artery without angina pectoris; I27.20 Pulmonary hypertension, unspecified; E11.40 Type 2 diabetes mellitus with diabetic neuropathy, unspecified; I35.0 Nonrheumatic aortic (valve) stenosis; I44.7 Left bundle-branch block, unspecified; E78.5 Hyperlipidemia, unspecified; Z60.2 Problems related to living alone; I42.0 Dilated cardiomyopathy; F32.9 Major depressive disorder, single episode, unspecified; F43.10 Post-traumatic stress disorder, unspecified; E11.22 Type 2 diabetes mellitus with diabetic chronic kidney disease; N18.9 Chronic kidney disease, unspecified; I48.91 Unspecified atrial fibrillation; Z96.652 Presence of left artificial knee joint; J44.9 Chronic obstructive pulmonary disease, unspecified; K21.9 Gastro-esophageal reflux disease without esophagitis; Z79.899 Other long term (current) drug therapy; I25.2 Old myocardial infarction; Z87.442 Personal history of urinary calculi; Z95.5 Presence of coronary angioplasty implant and graft; I95.9 Hypotension, unspecified; Z88.0 Allergy status to penicillin; Z88.7 Allergy status to serum and vaccine; Z91.041 Radiographic dye allergy status; Z79.82 Long term (current) use of aspirin; Z90.49 Acquired absence of other specified parts of digestive tract; Z72.89 Other problems related to lifestyle
CPT/HCPCS: 36415; 71045; 80048; 80053; 80069; 81001; 82803; 82948; 83735; 83880; 84100; 84132; 84484; 85014; 85025; 85610; 85730; 87077; 87081; 87088; 87186; 93005; 93460; 94640; 94760; 96365; 96366; 96375; 97110; 97116; 97163; 97530; 99152; 99153; 99285; A4620; C1769; C1894; G0378; J0461; J1250; J1644; J1720; J1815; J1940; J2001; J2250; J2930; J3010; J3480; J3490; J7030; J7512; J7626; Q0163; Q9967

== ENCOUNTER 2019-04-04 17:24 | Emergency (ER) | payer OTHER ==
[~2019-04-04] VITALS: Ht 188 cm; Wt 105.0 kg
[~2019-04-04 17:24] MED LIST changes: -ALBU18HF2 INH; -ALOG25TA2 PO; -AMOX-580 PO; -ASPI-1265 PO; -ATOR10TA87 PO; -CARB15DR95 EACHEYE; -CLOP75TA33 PO; -DULO60CA65 PO; -FLUT16SP2 BOTHNARES; -GABA-534 PO; -GLIP5TAB13 PO; -IPRA4AER IH; -LOSA25TA96 PO; -METO50TA7 PO; -OMEP20CA11 PO; -POTA10TA36 PO; -SILV50CR31 TP
[2019-04-04 18:02] LABS: BASOPHILS % (AUTO) 0.4 % (0-1); EOSINOPHILS % (AUTO) 0.4 % (0-6); HEMATOCRIT 45.7 % (42.0-52.0); HEMOGLOBIN 14.7 g/dl (14.0-17.9); LYMPHOCYTES # (AUTO) 0.8 X10'3 (1.1-4.8); LYMPHOCYTES % (AUTO) 8.4 % (21-51); MEAN CORPUSCULAR HEMOGLOBIN 19.7 PG (27.0-31.0); MEAN CORPUSCULAR HGB CONC 32.1 g/dL (33.0-36.5); MEAN CORPUSCULAR VOLUME 61.5 FL (78-98); MEAN PLATELET VOLUME 8.5 FL (7.4-10.4); MONOCYTES # (AUTO) 0.9 X10'3 (0-0.9); NEUTROPHILS # (AUTO) 7.3 X10'3 (1.8-7.7); NEUTROPHILS % (AUTO) 80.8 % (42-75); PLATELET COUNT 195 X10'3 (140-440); RED BLOOD COUNT 7.44 X10'6 (4.70-6.10); RED CELL DISTRIBUTION WIDTH 19.3 % (11.5-14.5); WHITE BLOOD COUNT 9.1 X10'3 (4.5-11.0)
[2019-04-04 18:10] LABS: PARTIAL THROMBOPLASTIN TIME 28 SECONDS (22-32)
[2019-04-04 18:13] LABS: ALANINE AMINOTRANSFERASE 14 U/L (12-78); ALBUMIN/GLOBULIN RATIO 0.7 (1.1-1.5); ALKALINE PHOSPHATASE 69 IU/L (46-116); ANION GAP 11 (8-16); ASPARTATE AMINO TRANSFERASE 16 U/L (10-37); BILIRUBIN,TOTAL 1.9 MG/DL (0.1-1.0); BLOOD UREA NITROGEN 21 MG/DL (7-18); BUN/CREATININE RATIO 16.5 (5.4-32.0); CALCIUM 9.2 MG/DL (8.5-10.1); CHLORIDE 100 MMOL/L (99-107); CREATININE 1.27 MG/DL (0.60-1.10); GLUCOSE 155 MG/DL (70-104); POTASSIUM 4.3 MMOL/L (3.5-5.1); SODIUM 141 MMOL/L (135-145); TOTAL CARBON DIOXIDE 30.2 MMOL/L (24-32); TOTAL PROTEIN 7.2 G/DL (6.4-8.2); eGFR 54 ML/MIN
[2019-04-04] MEDS ORDERED: fentaNYL/PF 50MCG/1 ML 2ML syringe IV ONE ×2 (19:00→20:25)
[2019-04-04] MEDS ORDERED: ondansetron/PF 4mg/2ml inj IV ONE (19:00)
[2019-04-04 19:37] LABS: ANISOCYTOSIS 2+; MICROCYTOSIS 2+; PLATELET ESTIMATE NORMAL; TARGET CELLS FEW
[2019-04-04] MEDS ORDERED: OXYC10TA47 PO (20:27)
[2019-04-04] MEDS ORDERED: POLY17PO10 PO (20:27)
--- NOTE | 2019-04-04 20:45 | NUR ---
Spoke with MD Thurman concerning pt's discharge. informed that patient was on comfort care before ED visit and will return to home on comfort care following discharge from ED. Hospitalist Emmanuel informed pt and pt's spouse along with MD Thurman that there are no more available interventions concerning his cardiac health. Pt and his agreed with the plan of care to DC home.
[2019-04-04 21:15] VITALS: BP 95/58
== END 2019-04-04 21:17 | disposition home or self-care (01) ==
LOC: ER 17:25
DX: R07.89 Other chest pain (principal); R79.89 Other specified abnormal findings of blood chemistry; R60.0 Localized edema; I11.0 Hypertensive heart disease with heart failure; I50.9 Heart failure, unspecified; I25.2 Old myocardial infarction; J44.9 Chronic obstructive pulmonary disease, unspecified; Z88.0 Allergy status to penicillin; Z88.5 Allergy status to narcotic agent; Z88.8 Allergy status to other drugs, medicaments and biological substances; Z79.899 Other long term (current) drug therapy
CPT/HCPCS: 36415; 71045; 80053; 84484; 85025; 85610; 85730; 93005; 96374; 96375; 96376; 99284; J2405; J3010